=== PATIENT | female | born 2000 | race Caucasian/White ===

== ENCOUNTER 2021-09-14 14:54 | Emergency (ER) | payer OTHER ==
[2021-09-14 15:28] VITALS: BP 109/87; PULSE 62; TEMP 98.1; BMI 25.0
== END 2021-09-14 17:05 | disposition home or self-care (01) ==
LOC: JERFT 14:54
DX: R07.9 Chest pain, unspecified (principal)
CPT/HCPCS: 93005; 93010; 99283-25